=== PATIENT | female | born 1995 | race Caucasian/White ===

== ENCOUNTER 2019-08-09 20:03 | Emergency (ER) | payer MEDICAID ==
[~2019-08-09] VITALS: Ht 157.5 cm; Wt 83.9 kg
[2019-08-09 20:11] VITALS: BP 114/53; Ht 157.5 cm; Wt 83.9 kg
== END 2019-08-10 02:37 | disposition left against medical advice (07) ==
LOC: ED 20:03
DX: Z53.21 Procedure and treatment not carried out due to patient leaving prior to being seen by health care provider (principal)